=== PATIENT | male | born 1970 | race Hispanic/Latino ===

== ENCOUNTER 2018-05-03 15:50 | Inpatient (IN) | payer OTHER ==
[~2018-05-03] VITALS: Ht 167.6 cm; Wt 100.2 kg
[2018-05-03 16:59] LABS: BASOPHILS % (AUTO) 0.6 % (0.0-5.0); CREATININE 1.1 mg/dL (0.5-1.5); EOSINOPHILS % (AUTO) 1.8 % (0.0-8.0); HEMATOCRIT 36.9 % (42-54); LYMPHOCYTES % (AUTO) 26.9 % (21.0-51.0); MEAN CORPUSCULAR HEMOGLOBIN 31.9 pg (27.0-33.0); MEAN CORPUSCULAR HGB CONC 33.9 g/dL (32.0-36.0); MEAN CORPUSCULAR VOLUME 93.9 fL (79-99); MONOCYTES % (AUTO) 12.4 % (3.0-13.0); NEUTROPHILS % (AUTO) 58.3 % (40.0-77.0); NUCLEATED RED BLOOD CELLS 0.5 % (0.0-0.19); PLATELET COUNT (AUTO) 33 K/uL (130-400); POTASSIUM 3.9 mmol/L (3.5-5.1); RED BLOOD CELL COUNT(AUTO) 3.93 MIL/uL (4.50-6.20); RED CELL DISTRIBUTION WIDTH 15.6 % (11.0-15.5)
[2018-05-03 17:03] LABS: BILIRUBIN,TOTAL 4.6 mg/dL (0.2-1.0)
[2018-05-03 17:51] LABS: BAND NEUTROPHILS % (MANUAL) 1 % (0-2); EOSINOPHILS % (MANUAL) 3 % (1-6); LYMPHOCYTES % (MANUAL) 24 % (22-44); MONOCYTES % (MANUAL) 12 % (2-9); REACTIVE LYMPHOCYTES 2 % (0-0); SEGMENTED NEUTROPHILS % 58 % (40-70)
[2018-05-03 17:52] LABS: MAN.DIFF COMMENT-IMPRESSION MANUAL DIFFERENTIAL
[2018-05-03 18:12] LABS: INR 1.41 (0.85-1.15); PARTIAL THROMBOPLASTIN TIME 35.5 SEC (26.3-35.5); PROTHROMBIN TIME 14.7 SEC (9.6-11.6)
[2018-05-03 18:14] LABS: APPEARANCE,URINE Clear (CLEAR); BILIRUBIN,URINE Small (NEGATIVE); COLOR,URINE Dark Yellow (YELLOW); GLUCOSE, URINE (UA) Negative (NEGATIVE); KETONES,URINE Negative (NEGATIVE); LEUKOCYTE ESTERASE ,URINE Negative (NEGATIVE); NITRATE,URINE Negative (NEGATIVE); OCCULT BLOOD,URINE Negative (NEGATIVE); PH,URINE 6.5 (5.0-8.0); PROTEIN,URINE Negative (NEGATIVE)
[2018-05-03 18:20] LABS: RBC,URINE 0-1 /HPF (0-1); WBC,URINE 0-1 /HPF (0-1)
[2018-05-03 18:21] LABS: BACTERIA,URINE Rare /HPF (None Seen); SQUAMOUS EPITHELIAL CELL,UR Rare /HPF (0-2)
[2018-05-03 21:51] VITALS: BP 127/73
[2018-05-04 00:48] LABS: HEMATOCRIT 35.2 % (42-54)
[2018-05-04 04:01] VITALS: BP 115/74
[2018-05-04 06:49] LABS: HEMATOCRIT 36.2 % (42-54)
[2018-05-04 08:00] VITALS: BP 121/70
[2018-05-04] MEDS ORDERED: PANTOPRAZOLE 40 MG/VIAL IVP SCH (09:00)
[2018-05-04 12:00] VITALS: BP 118/71
[2018-05-04 16:00] VITALS: BP 125/78
== END 2018-05-04 18:30 | disposition home or self-care (01) | DRG 379 ==
LOC: EDH 15:50 → EDHIP 15:51 → 3CH 21:46
PROVIDERS: ADMIT Internal Medicine; ATTEND Internal Medicine
PROC: 3E0234Z Introduction of Serum, Toxoid and Vaccine into Muscle, Percutaneous Approach (ICD-10-PCS; principal; 2018-05-03)
DX: K92.2 Gastrointestinal hemorrhage, unspecified (principal); B18.2 Chronic viral hepatitis C; D69.59 Other secondary thrombocytopenia; F10.10 Alcohol abuse, uncomplicated; I10 Essential (primary) hypertension; K74.60 Unspecified cirrhosis of liver; R79.1 Abnormal coagulation profile; Z91.19 Patient's noncompliance with other medical treatment and regimen; Z91.14 Patient's other noncompliance with medication regimen; Z23 Encounter for immunization
CPT/HCPCS: 36415; 71045; 80053; 81001; 82270; 83690; 84484; 85014; 85018; 85025; 85610; 85730; 86850; 86900; 86901; 93005; C9113

== ENCOUNTER 2018-10-07 13:39 | Emergency (ER) | payer MEDICAID ==
[2018-10-07 14:09] LABS: BASOPHILS % (AUTO) 0.8 % (0.0-5.0); EOSINOPHILS % (AUTO) 4.2 % (0.0-8.0); HEMATOCRIT 28.3 % (42-54); LYMPHOCYTES % (AUTO) 31.1 % (21.0-51.0); MEAN CORPUSCULAR HEMOGLOBIN 31.9 pg (27.0-33.0); MEAN CORPUSCULAR HGB CONC 32.4 g/dL (32.0-36.0); MEAN CORPUSCULAR VOLUME 98.2 fL (79-99); MONOCYTES % (AUTO) 8.5 % (3.0-13.0); NEUTROPHILS % (AUTO) 55.4 % (40.0-77.0); NUCLEATED RED BLOOD CELLS 0.2 % (0.0-0.19); PLATELET COUNT (AUTO) 76 K/uL (130-400); RED BLOOD CELL COUNT(AUTO) 2.88 MIL/uL (4.50-6.20); RED CELL DISTRIBUTION WIDTH 18.3 % (11.0-15.5); WHITE BLOOD COUNT (AUTO) 2.8 K/uL (4.8-10.8)
[2018-10-07 14:15] LABS: CREATININE 0.8 mg/dL (0.5-1.5); POTASSIUM 4.6 mmol/L (3.5-5.1)
[2018-10-07 14:20] LABS: BILIRUBIN,TOTAL 2.7 mg/dL (0.2-1.0); TOTAL PROTEIN, SERUM 5.3 g/dL (6.0-8.3)
[2018-10-07 14:28] LABS: INR 1.97 (0.85-1.15); PARTIAL THROMBOPLASTIN TIME 47.2 SEC (26.3-35.5); PROTHROMBIN TIME 20.4 SEC (9.6-11.6)
[2018-10-07 15:01] LABS: APPEARANCE,URINE Clear (CLEAR); BILIRUBIN,URINE Negative (NEGATIVE); COLOR,URINE Yellow (YELLOW); GLUCOSE, URINE (UA) Negative (NEGATIVE); KETONES,URINE Negative (NEGATIVE); LEUKOCYTE ESTERASE ,URINE Negative (NEGATIVE); NITRATE,URINE Negative (NEGATIVE); OCCULT BLOOD,URINE Negative (NEGATIVE); PROTEIN,URINE Negative (NEGATIVE); UROBILINOGEN,URINE 0.2 mg/dL (0.2-1.0)
[2018-10-07 15:03] LABS: BAND NEUTROPHILS % (MANUAL) 2 % (0-2); BASOPHILS % (MANUAL) 1 % (0-2); EOSINOPHILS % (MANUAL) 1 % (1-6); LYMPHOCYTES % (MANUAL) 20 % (22-44); MAN.DIFF COMMENT-IMPRESSION MANUAL DIFFERENTIAL; METAMYELOCYTES % 1 % (0-0); MONOCYTES % (MANUAL) 9 % (2-9); PLATELET MORPHOLOGY COMMENT DECREASED; REACTIVE LYMPHOCYTES 2 % (0-0); SEGMENTED NEUTROPHILS % 64 % (40-70)
[2018-10-10] MEDS ORDERED: SPIR50TA5 PO (09:11)
[2018-10-10] MEDS ORDERED: PROP20TA7 PO (09:11)
[2018-10-10] MEDS ORDERED: FURO40TA5 PO (09:11)
== END 2018-10-07 15:49 | disposition home or self-care (01) ==
LOC: EDH 13:39
DX: K74.69 Other cirrhosis of liver (principal); R18.8 Other ascites; F14.10 Cocaine abuse, uncomplicated; Z93.3 Colostomy status
CPT/HCPCS: 36415; 71045; 80053; 81003; 82140; 82550; 83880; 84484; 85025; 85610; 85730; 93005

== ENCOUNTER 2019-11-24 01:59 | Emergency (ER) | payer MEDICAID ==
[~2019-11-24 01:59] MED LIST: FURO40TA5 PO; PROP20TA7 PO; SPIR50TA5 PO
[2019-11-24 02:24] LABS: BASOPHILS % (AUTO) 0.1 % (0.0-5.0); EOSINOPHILS % (AUTO) 0.2 % (0.0-8.0); HEMATOCRIT 30.9 % (42-54); LYMPHOCYTES % (AUTO) 5.3 % (21.0-51.0); MEAN CORPUSCULAR VOLUME 96.9 fL (79-99); MONOCYTES % (AUTO) 5.1 % (3.0-13.0); NEUTROPHILS % (AUTO) 88.3 % (40.0-77.0); PLATELET COUNT (AUTO) 57 K/uL (130-400); RED BLOOD CELL COUNT(AUTO) 3.19 MIL/uL (4.50-6.20); RED CELL DISTRIBUTION WIDTH 14.5 % (11.0-15.5); WHITE BLOOD COUNT (AUTO) 9.2 K/uL (4.8-10.8)
[2019-11-24 02:33] LABS: CARBON DIOXIDE 26 mmol/L (21-32); CHLORIDE 108 mmol/L (101-111); GLOMERULAR FILTR. RATE CALC 84 mL/min (>60); GLUCOSE,RANDOM 292 mg/dL (70-105); POTASSIUM 4.5 mmol/L (3.5-5.1); SODIUM SERUM 139 mmol/L (136-145); UREA NITROGEN, BLOOD 8 mg/dL (7-18)
[2019-11-24 02:36] LABS: ALANINE AMINOTRANSFERASE 25 U/L (12-78); ALBUMIN 1.8 g/dL (3.5-5.0); ALCOHOL, BLOOD < 3 mg/dL (0-10); ASPARTATE AMINOTRANSFERASE 36 U/L (10-37); BILIRUBIN,TOTAL 2.4 mg/dL (0.2-1.0); CREATINE KINASE, TOTAL 96 U/L (21-232); LIPASE 68 U/L (114-286); TOTAL PROTEIN, SERUM 4.6 g/dL (6.0-8.3)
[2019-11-24 02:41] LABS: INR 1.61 (0.85-1.15); PARTIAL THROMBOPLASTIN TIME 30.4 SEC (26.3-35.5); PROTHROMBIN TIME 17.1 SEC (9.6-11.6)
[2019-11-24 02:54] LABS: PLATELET MORPHOLOGY COMMENT DECREASED
[2019-11-24 03:23] LABS: AMMONIA 147 umol/L (11-32)
[2019-11-24] MEDS ORDERED: IOHEXOL 350 MG/ML 100ML INFUS..BTL IV ONE (05:08)
[2019-11-24] MEDS ORDERED: SODIUM CHLORIDE 0.9% 1000ML 1,000 ML IV ONE (06:28)
[2019-11-24] MEDS ORDERED: SODIUM CHLORIDE 0.9% 250 ML IV ONE (07:39)
== END 2019-11-24 08:14 | disposition short-term general hospital (02) ==
LOC: EDH 01:59
DX: S36.030A Superficial (capsular) laceration of spleen, initial encounter (principal); S60.812A Abrasion of left wrist, initial encounter; K74.60 Unspecified cirrhosis of liver; V49.49XA Driver injured in collision with other motor vehicles in traffic accident, initial encounter; Y93.89 Activity, other specified; Y92.488 Other paved roadways as the place of occurrence of the external cause; Y99.8 Other external cause status
CPT/HCPCS: 36415; 70450; 71260; 72125; 74177; 80053; 82140; 82550; 82948; 83690; 84484; 85025; 85610; 85730; 86850; 86900; 86901; 86922; 86927; 93005; 99291; G0480; J7030; J7050; P9017; Q9967